=== PATIENT | female | born 1985 | race Two or more races ===

== ENCOUNTER 2024-03-07 11:56 | Outpatient (REF) | payer MEDICAID, SELFPAY ==
[2024-03-07 13:36] LABS: MANUAL DIFF FLAG NO
[2024-03-07 13:49] LABS: Basophils Percent Auto 0.6 % (0-2); Eosinophils Absolute Auto 0.1 X10*3/uL (0.0-0.4); Eosinophils Percent Auto 1.3 % (0-4); Hematocrit 35.2 % (37.0-47.0); Hemoglobin 10.4 g/dl (12.0-16.0); Imm Gran Abs Auto 0.01 X10*3/uL (0.00-0.03); Imm Gran Pct Auto 0.1 % (0.0-0.4); Lymphocytes Absolute Auto 2.1 X10*3/uL (1.2-4.9); Lymphocytes Percent Auto 29.8 % (20-40); Mean Corpuscular HGB Conc 29.5 g/dl (31.0-35.0); Mean Corpuscular Hemoglobin 19.4 pg (27.0-33.0); Mean Corpuscular Volume 65.7 fL (80.0-98.0); Monocytes Absolute Auto 0.6 X10*3/uL (0.1-1.2); Monocytes Percent Auto 9.2 % (2-11); Neutrophils Absolute Auto 4.1 x10*3/uL (2.0-8.3); Platelet Count 303 X10*3/uL (160-400); Red Blood Count 5.36 X10*6/uL (4.20-5.50); Red Cell Distribution Width 17.2 % (11.0-16.0)
[2024-03-07 14:38] LABS: Alanine Aminotransferase 12 U/L (0-31); Albumin Level 4.4 g/dL (3.5-5.0); Alkaline Phosphatase 86 U/L (39-117); Anion Gap 7 (12-20); Aspartate Amino Transferase 15 U/L (5-31); Bilirubin Total 0.4 mg/dL (0.0-1.0); Blood Urea Nitrogen 9 mg/dL (9-16); C Reactive Protein < 0.10 mg/dL (< or = 0.50); Calcium 9.3 mg/dL (8.4-10.2); Carbon Dioxide 29 mmol/L (22-29); Chloride 108 mmol/L (96-108); Estimated Glomerular Filt Rate > 60; Glucose Random 89 mg/dL (60-115); Potassium 3.9 mmol/L (3.3-5.1); Sodium 140 mmol/L (135-145); TSH reflex Free T4 1.58 uIU/mL (0.32-4.0); Total Protein 7.9 g/dL (6.5-8.0)
[2024-03-07 14:40] LABS: Erythrocyte Sedimentation Rate 10 MM/HR (0-20)
[2024-03-07 14:41] LABS: Rheumatoid Factor < 13.0 IU/mL (<15.0)
[2024-03-08 21:53] LABS: Lyme Abs Screen <0.90 index
[2024-03-18 10:58] LABS: Anti Nuclear Antibody Screen POSITIVE (NEGATIVE)
== END 2024-03-07 11:57 | disposition home or self-care (01) ==
LOC: HO.HHCL 11:56
PROVIDERS: Visit Provider Family Medicine
DX: M79.10 Myalgia, unspecified site (principal)
CPT/HCPCS: 36415; 80053; 84443; 85025; 85652; 86038; 86039; 86140; 86431; 86617; 86618

== ENCOUNTER 2025-04-02 13:35 | Emergency (ER) | payer MEDICAID, SELFPAY ==
--- NOTE | ~2025-04-02 | XR_ITS ---
EXAMINATION: XR FINGERS LEFT HISTORY: 4th digit crushed in door COMPARISON: Comparison is made with the prior examination of the left hand dated 12/16/2012. FINDINGS: Three views of the left ring finger are submitted. Osseous mineralization is normal. There is no fracture or dislocation. The joint spaces are preserved. The soft tissues are unremarkable. XR/XR finger LT min 2V IMPRESSION: Unremarkable examination of the left ring finger. Electronically signed by: Jacky Russell MD 04/02/2025 02:17 PM EDT
--- NOTE | 2025-04-02 13:38 | ED.SKABFB ---
HPI - Skin/Abscess/Foreign Bdy General Chief complaint: Extremity Injury, Upper Stated complaint: broken nail Time Seen by Provider: 04/02/25 16:39 Source: patient and supervisor hardboard Mode of arrival: ambulatory Limitations: no limitations and language barrier History of Present Illness ED Provider: HPI narrative: Patient works in the laundry room, was pushing the laundry bin at work when her left 4th digit became jammed and cracked all the way down to the nail bed she wears acrylic nails, unsure of her tetanus status. Patient is right-hand dominant Related Data Allergies Allergy/AdvReac Type Severity Reaction Status Date / Time No Known Allergies Allergy Verified 04/02/25 13:58 PMFSH Social History Social History Advance Directives: No Advance Directives Information Provided: Yes Do you have a plan to hurt others: No Plan Physical Exam Vital Signs: Vital Signs: Last Vital Signs Temp 97.2 F 04/02/25 13:55 Pulse 81 04/02/25 13:55 Resp 18 04/02/25 13:55 BP 151/76 H 04/02/25 13:55 Pulse Ox 100 04/02/25 13:55 O2 Del Method Room Air 04/02/25 13:55 BMI result Body Mass Index 31.1 Const: Other: Left hand radial ulnar pulses +2 full range of motion of the wrist, 4th digit involvement of the nail down to the nailbed, no sensory deficits proximally FDS FDP intact Course Course Course Narrative: This is a Rapid Medical Exam performed in triage by Hayde Fuentes PA-C. Full HPI, ROS and PE to be performed by primary ED provider. 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 Tetanus unknown PE: Acrylic nails present. Left 4th digit nail split. Lifted. Plan: X-ray, +/- nail removal Medications Administered Discontinued Medications Generic Name Dose Route Start Last Admin Trade Name Freq PRN Reason Stop Dose Admin Diphtheria/Tetanus/Acell Pertussis 0.5 ml 04/02/25 16:47 04/02/25 17:00 Diphth,Pertus(Acell),Tet Adult 0.5 Ml Syringe IM 04/02/25 16:48 0.5 ml .ONCE ONE Administration Lidocaine HCl 10 ml 04/02/25 16:44 04/02/25 17:02 Lidocaine Hcl 1 % 20 Ml Vial INFILTRATI 04/02/25 16:45 10 ml ONCE ONE Administration Medical Decision Making Medical Decision Making [facility] Narrative: Presenting with nail injury, we will obtain x-ray to make sure there is no underlying tuft fracture otherwise would be open injury and I would start her on antibiotics tetanus updated. 17:36 after digital block the acrylic part of the nail was removed with a needle charter coach driver, the nailbed remained in place Independent Interpretation I performed an independent interpretation of an: Plain X-Ray (No underlying fracture) Radiology Impression Discussion of test interpretation with radiology: I have reviewed the radiologist's reading. Radiologist Impression: XR/XR finger LT min 2V IMPRESSION: Unremarkable examination of the left ring finger. Procedures Nerve Block Nerve Block 1: Local Anesthetic: lidocaine 1% Amount of anesthesia used (mL): 5 Side: left Nerve Blocks: digital Procedure Successful: Yes Patient Tolerated Procedure: well and no complications Complications: none Discharge Plan Discharge Clinical Impression: Injury of finger Qualifiers: Encounter type: initial encounter Laterality: left Qualified Code(s): S69.92XA - Unspecified injury of left wrist, hand and finger(s), initial encounter Patient Disposition: Home, Self-Care Additional Instructions: Keep the dressing in place for the next 2 days thereafter remove and can use bacitracin ointment over the area, you can also get small finger condom to use if you are dealing with water but uterine specifically need to keep it covered at all times, it looks like the nail bed was not involved and so at some point you should have nail grow back, I am giving her a work note, make sure to take Tylenol 975 mg every 6 hours around the clock for the next 2 days to keep pain at [place], and ibuprofen 400 mg every 6 hours for additional pain control, it is expected that he will have some pain and throbbing of the finger, drainage of pus redness spreading around her hand come back to the ER. Tetanus was updated, good for the next 10 years. Stand Alone Forms: Work/School Release Print Language: Lao
[2025-04-02 13:55] VITALS: BP 151/76; PULSE 81; RESP 18; TEMP 36.2; O2SAT 100; BMI 31.1
--- OUTSIDE RECORDS SUMMARY | 2025-04-02 15:19 | XMS_ITS | Encounter Summary ---
Author Organization [employer] Address [address] [place] [address] Care Team Providers Care Riveting Machine Operator Tape Control Name Role Phone Unavailable Primary Care Provider Unavailabl e Reason for Visit * Reason Comments Med Refill Encounter Details Date Type Department Care Team (Late st Contact Info) Description 04/06/2024 Refill [facility] [address] [place] [address] Jocelyn Barrow MD [address] [place] [address] Seasonal allergic rhinitis, unspecified trigger Social History Tobacco Use Types Packs/Day Years Used Date Smoking Tobacco: Never Passive Smoke Exposure: Never Smokeless Tobacco: Never Comments Unknown Sex and Gender Information Value Date Recorded Sex Assigned at Female 09/12/2022 10:18 AM EDT Legal Sex Female 10:18 AM EDT Gender Identity Female 09/12/2022 10:18 AM EDT Sexual Orientation Choose not to disclose 2021 10:18 AM EDT documented as of this encounter Plan of Treatment Not on file documented as of this encounter Visit Diagnoses Diagnosis Seasonal allergic rhinitis, unspecified trigger documented in this encounter
--- OUTSIDE RECORDS SUMMARY | 2025-04-02 15:19 | XMS_ITS | Clinical Summary ---
Author Organization [facility] Address [address] [place] [address] Care Team Providers Care Loan Servicing Specialist Name Role Phone Unavailable Primary Care Provider Unavailabl e Allergies No known active allergies Medications levocetirizine (Xyzal) 5 MG tabletIndication s:Seasonal allergic rhinitis, unspecified trigger Take 1 tablet (5 mg) by mouth in the evening. 90 tablet 3 3 Active fluticasone (Flonase) 50 MCG/ACT nasal sprayIndications :Seasonal allergic rhinitis, unspecified trigger SPRAY 2 SPRAYS INTO EACH NOSTRIL IN THE MORNING SHAKE GENTLY/PRIME BEFORE 1ST USE&CLEAN TIP/REPLACE CAP 48 mL 4 Active Iron, Ferrous Sulfate, 325 (65 Fe) MG tabletIndication s:Iron deficiency anemia, unspecified iron deficiency anemia type Take 1 tablet by mouth Once per day. 30 tablet 11 4 03/08/20 25 Active Problems No known active problems Encounters Date Type Department Care Team Description 04/02/2025 Orders Only [facility] External Provider, [facility] 01/24/2025 Population Health Risk Score [facility] ([facility]) Department [address] [facility] [address] [place] [id number] Provider, Population Health Generic from Last 3 Months Immunizations Immunization Administration Dates Next Due Influenza injectable quadrivalent preservative f ree 08/15/2019 Td (adult), 5 Lf tetanus tox oid, preservative free, adsorbed 12/16/2012 Social History Tobacco Use Types Packs/Day Years Used Date Smoking Tobacco: Never Passive Smoke Exposure: Never Smokeless Tobacco: Never Tobacco Cessation:Counseling Given: Not Answered Comments Unknown Sex and Gender Information Value Date Recorded Sex Assigned at Female 09/12/2022 10:18 AM EDT Legal Sex Female 10:18 AM EDT Gender Identity Female 09/12/2022 10:18 AM EDT Sexual Orientation Choose not to disclose 2021 10:18 AM EDT Last Filed Vital Signs Vital Sign Reading Time Taken Comments Blood Pressure 142/82 03/07/2024 11:24 AM EDT Pulse 90 03/07/2024 11:24 AM EDT Temperature 36.8 ??C (98.2 ??F) 03/07/2024 11:24 AM E DT Respiratory Rate 18 03/07/2024 11:24 AM EDT Oxygen Saturation 100% 03/07/2024 11:24 AM EDT Inhaled Oxygen Concentration - - Weight 78.9 kg (174 lb) 03/07/2024 11:24 AM EDT Height 163 cm (5' 4.17 ) 05/10/2022 12:06 AM EDT Body Mass Index 29.71 05/10/2022 12:06 AM EDT Plan of Treatment Health Maintenance Due Date Last Done Comments Depression Screening 1985 SDOH Screening 1985 Disability Screening 1985 Alcohol/Substance Use Screening 1997 Family Planning (PISQ) 2000 Hepatitis B Vaccines (1 of 3 - 19+ 3-dose series) 2004 Pap Smear 2006 DTaP/Tdap/Td Vaccines (1 - Tdap) 12/17/2012 12/16/2012 Cervical Cancer Screening 2015 HPV/Cotest 2015 COVID-19 Vaccine ( season) 2024 09/28/2023, 09/08/2021, 03/25/2021, Additional history exists Influenza Vaccine (#1) 2024 10/26/2023, 2018 Tobacco Screening 03/07/2025 03/07/2024 Zoster Vaccines (1 of 2) 2035 RSV Patients and Patients Aged 60 years or older (1 - 1-dose 75+ series) 2060 HIV Screening Completed 05/10/2022 Hepatitis C Screening Completed 05/10/2022 HIB Vaccines Aged Out No longer eligi ble based on patient's age to complete this topic HPV Vaccines Aged Out No longer eligi ble based on patient's age to complete this topic Hepatitis A Vaccines Aged Out No long er eligible based on patient's age to complete this topic IPV Vaccines Aged Out No longer eligi ble based on patient's age to complete this topic Meningococcal B Vaccine Aged Out No l onger eligible based on patient's age to complete this topic Meningococcal Vaccine Aged Out No curtis irina eligible based on patient's age to complete this topic Pneumococcal Vaccine: Pediatrics (0 to 5 Years) and At-Risk Patients (6 to 49) Years) Aged Out No longer eligible based on patient's age to complete this topic RSV under 20 months Aged Out No longe r eligible based on patient's age to complete this topic Rotavirus Vaccines Aged Out No longer eligible based on patient's age to complete this topic Procedures Procedure Name Priority Date/Time Associated Diagnosis Comments XR FINGERS 2+ VIEWS LEFT Routine 04/02/2025 1:54 PM EDT ZZZ HISTORICAL HEPATITIS C AB W/REFL TO HCV RNA, QN, PCR Routine 05/10/2022 1:59 PM EDT HIV 1/2 ANTIGEN/ANTIBODY, FOURTH GENERATION W/RFL Routine 05/10/2022 1:59 PM EDT from Last 3 Months or Most Recently Relevant to Health Maintenance Results * XR Fingers 2+ Views Left (04/02/2025 1:54 PM EDT) Anatomical Region Laterality Modality Upper Extremities, Fingers Left Radio graphic Imaging 04/02/2025 1:54 PM EDT Narrative 04/02/2025 2:20 PM EDT ? [facility] ?[address] ?[place] [address] ?XRay Report ? Signed ? Patient: Rudolphannamarie Burns,Jolynn ?MR#: [id number] ?? [id number] ? : 1985 ?Acct:[id number] ? Age/Sex: 39 / F ?ADM Date: 05/21/25 ? Loc: HO.ED ? Attending Dr: ? Ordering Physician: Hayde Fuentes ?? Date of Service: 04/02/25 ?? Procedure(s): XR finger LT min 2V ?? Accession Number(s): [id number] ? cc: Jocelyn Barrow MD; Hayde Fuentes ? EXAMINATION: ??XR FINGERS LEFT ? HISTORY: 4th digit crushed in door ? COMPARISON: Comparison is made with the prior examination of the left ?? hand dated 12/16/2012. ? FINDINGS: ? Three views of the left ring finger are submitted. ??Osseous ?? mineralization is normal. ??There is no fracture or dislocation. ??The ?? joint spaces are preserved. ??The soft tissues are unremarkable. ? XR/XR finger LT min 2V ?? IMPRESSION: ? Unremarkable examination of the left ring finger. ? Electronically signed by: ??Jacky Russell MD ??04/02/2025 02:17 PM EDT ? Dictated By: ?Jacky Russell MD ? Signed By: ?<Electronically signed by Jacky Russell MD in OV> ?04/02/25 1417 ? DD/ 1354 ? TD/TT: 04/02/25 1409 ? Newborn Photographer: ? Procedure Note Anastasia, Ramone - 04/02/[address] [address] XRay Report Signed Patient: Jolynn PhippsMR#: [id number] : 1985Acct:[id number] Age/Sex: 39 / FADM Date: 04/02/25 Loc: HO.ED Attending Dr: Ordering Physician: Hayde Fuentes Date of Service: 04/02/25 Procedure(s): XR finger LT min 2V Accession Number(s): [id number] cc: Jocelyn Barrow MD; Hayde Fuentes EXAMINATION: XR FINGERS LEFT HISTORY: 4th digit crushed in door COMPARISON: Comparison is made with the prior examination of the left hand dated 12/16/2012. FINDINGS: Three views of the left ring finger are submitted. Osseous mineralization is normal. There is no fracture or dislocation. The joint spaces are preserved. The soft tissues are unremarkable. XR/XR finger LT min 2V IMPRESSION: Unremarkable examination of the left ring finger. Electronically signed by: Jacky Russell MD 04/02/2025 02:17 PM EDT RP Dictated By: Jacky Russell MD Signed By: <Electronically signed by Jacky Russell MD in OV> 04/02/25 1417 DD/ 1354 TD/TT: 04/02/25 1409 Newborn Photographer: [facility] External Provider IMG XR PROCEDURES Final Result * HEPATITIS C AB W/REFL TO HCV RNA, QN, PCR (05/10/2022 1:59 PM EDT) HEPATITIS C ANTIBODY NON-REACT MILAD NON-REACT MILAD [facility] INDEX 0.04 <1.00 [facility] Comment: ?? HCV antibody was non-reactive. There is no laboratory ?? evidence of HCV infection. ?? In most cases, no further action is required. However, if recent HCV exposure is suspected, a test for HCV RNA (test code 90888) is suggested. ?? For additional information please refer to http://education.Tribe/faq/VBS11r2 (This link is being provided for informational/ educational purposes only.) ?? 05/10/2022 1:59 PM EDT Christopher Brock MD HISTORICAL/NON ORDERABLE LABS Fi nal Result [facility] [address] * HIV 1/2 ANTIGEN/ANTIBODY,FOURTH GENERATION W/RFL (05/10/2022 1:59 PM EDT) HIV-1/2 ANTIGEN AND ANTIBODIES, 4TH GENERATION W/ REFLEX NON-REACT MILAD NON-REACT MILAD [facility] Comment: HIV-1 antigen and HIV-1/HIV-2 antibodies were not detected. There is no laboratory evidence of HIV infection. ?? PLEASE NOTE: This information has been disclosed to you from records whose confidentiality may be protected by state law. ??If your state requires such protection, then the state law prohibits you from making any further disclosure of the information without the specific written consent of the person to whom it pertains, or as otherwise permitted by law. A general authorization for the release of medical or other information is NOT sufficient for this purpose. ? For additional information please refer to http://education.Tribe/faq/LAW910 (This link is being provided for informational/ educational purposes only.) ? The performance of this assay has not been clinically validated in patients less than 2 years old. ?? 05/10/2022 1:59 PM EDT us Christopher Brock MD LAB BLOOD ORDERABLES Final Resul t [facility] [address] from Last 3 Months or Most Recently Relevant to Health Maintenance Insurance Relevant e-solution C3
--- OUTSIDE RECORDS SUMMARY | 2025-04-02 15:20 | XMS_ITS | Encounter Summary ---
Author Organization [employer] Address [address] [place] [address] Care Team Providers Care Brush Head Maker Name Role Phone Unavailable Primary Care Provider Unavailabl e Reason for Visit * Reason Comments Med Refill Encounter Details Date Type Department Care Team (Late st Contact Info) Description 12/14/2024 Refill [facility] [address] [place] [address] Jocelyn Barrow MD [address] [place] [address] Seasonal allergic rhinitis, unspecified trigger Social History [...]
--- OUTSIDE RECORDS SUMMARY | 2025-04-02 15:20 | XMS_ITS | Clinical Summary ---
Author Organization [facility] Address [address] [place] [address] Phone Care Team Providers Care Course Developer Name Role Phone Jessica Carroll MD Primary Care Provider [phone] Allergies No known active allergies Medications ferrous sulfate 325 mg (65 mg elemental iron) tablet Take 1 tablet (325 mg total) by mouth 1 (one) time each day. 30 tablet 02/01/2025 Active Active Problems No known active problems Encounters Date Type Department Care Team Description 02/01/2025 7:41 PM EDT - 02/02/2025 12:25 AM EDT Emergency [facility] Emergency [address] [place] [address] Diarrhea, unspecified type (Primary Dx); Iron deficiency anemia, unspecified iron deficiency anemia type Discharge Disposition: Home or Self Care from Last 3 Months Surgical History Surgery Date Site/Laterality Comments SECTION PROCEDURE: [place] DELIVERY ONLY Medical History Medical History Date Comments Anemia DX:Anemia Anemia Family History Medical History Relation Name Comments Diabetes Father Relation Name Status Comments Father Social History Tobacco Use Types Packs/Day Years Used Date Smoking Tobacco: Never Smokeless Tobacco: Never Alcohol Use Standard Drinks/Week Comments Yes 0.8 (1 standard drink = 0.6 oz p ure alcohol) Comments Unknown Sex and Gender Information Value Date Recorded Sex Assigned at Female 02/01/2025 8:36 PM EDT Legal Sex Female 9:53 AM EST Gender Identity Female 02/01/2025 8:36 PM EDT Sexual Orientation Straight 02/01/2025 8: 36 PM EDT Obstetrics History Last Filed Vital Signs Vital Sign Reading Time Taken Comments Blood Pressure 108/71 02/01/2025 10:29 PM EDT Pulse 76 02/01/2025 10:29 PM EDT Temperature 37 ??C (98.6 ??F) 02/01/2025 10:29 PM EDT Respiratory Rate 18 02/01/2025 10:29 PM EDT Oxygen Saturation 98% 02/01/2025 10:29 PM EDT Inhaled Oxygen Concentration - - Weight 72.6 kg (160 lb) 02/01/2025 6:14 PM EDT Height 160 cm (5' 3 ) 02/01/2025 6:14 PM EDT Body Mass Index 28.34 02/01/2025 6:14 PM EDT Plan of Treatment Health Maintenance Due Date Last Done Comments Hepatitis B Vaccines (1 of 3 - 19+ 3-dose series) 2004 Cervical Cancer Screening: Pap Smear 2006 DTaP,Tdap,and Td Vaccines (3 - Td or Tdap) 12/16/2022 12/16/2012, 07/17/2012 COVID-19 Vaccine ( season) 2024 09/28/2023, 09/08/2021, 03/25/2021, Additional history exists Depression Screening 02/02/2025 Hepatitis C Screening 02/02/2025 Social Influencers of Health Screening 02/02/2025 Influenza Vaccine (Season Ended) 2025 10/26/2023, 08/15/2019 HIV Screening Completed 05/10/2022 HIB Vaccines Aged Out [...] on patient's age to complete this topic MMR Vaccines Aged Out No longer eligi ble based on patient's age to complete this topic Meningococcal ACWY Vaccine Aged Out N o longer eligible based on patient's age to complete this topic Meningococcal B Vaccine Aged Out No l onger eligible based on patient's age to complete this topic Pneumococcal Vaccine: Pediatrics (0 to 5 Years) and At-Risk Patients (6 to 64 Years) Aged Out No longer eligible based on patient's age to complete this topic RSV Immunization Patients Under 20 months Aged Out No longer eligible based on patient's age to complete this topic Varicella Vaccines Aged Out No longer eligible based on patient's age to complete this topic Procedures Procedure Name Priority Date/Time Associated Diagnosis Comments CT ABDOMEN PELVIS W CONTRAST STAT 02/01/2025 10:19 PM EDT [id number], RSV, FLU A AND B QUALITATIVE RT-PCR, INTERNAL LAB STAT 02/01/2025 8:59 PM EDT NICK URINE CULTURE TUBE STAT 02/01/2025 7:56 PM EDT URINALYSIS WITH REFLEX MICROSCOPIC AND CULTURE STAT 02/01/2025 7:56 PM EDT URINALYSIS WITH REFLEX MICROSCOPIC AND CULTURE STAT 02/01/2025 7:56 PM EDT CULTURE URINE STAT 02/01/2025 7:56 PM EDT CBC WITH AUTO DIFFERENTIAL STAT 02/01/2025 7:14 PM EDT COMPREHENSIVE METABOLIC PANEL STAT 02/01/2025 7:14 PM EDT CBC AND DIFFERENTIAL STAT 02/01/2025 7:14 PM EDT from Last 3 Months Results * CT Abdomen Pelvis w Contrast (02/01/2025 10:19 PM EDT) Anatomical Region Laterality Modality Body Computed Tomogra phy 02/01/2025 11:0 7 PM EDT Impressions 02/01/2025 11:07 PM EDT 1. No evidence of a bowel obstruction or free air. No pericolonic inflammation. No evidence of appendicitis. 2. Left ovarian follicle measures 1.6 cm. Small amount of pelvic free fluid is noted which might be physiologic. 3. Additional findings are detailed above. This document has been electronically signed by: Faraz Bryant M.D. on 02/01/2025 23:07:52 Narrative 02/01/2025 11:07 PM EDT INDICATION: LLQ pain, diarrhea x [address] ABDOMEN AND PELVIS WITH CONTRAST COMPARISON: None. FINDINGS: No evidence of a small-bowel obstruction. No free air. No pericolonic inflammation. Appendix is visualized, and there is no evidence of acute appendicitis. Subcentimeter nonenlarged lymph nodes are noted in the mesentery. Tubal ligation wires are noted. Small amount of pelvic free fluid is noted which might be physiologic. A left ovarian follicle measures 1.6 cm on axial image 148. The lung bases are unremarkable. A subcentimeter calcified granuloma is noted within the right hepatic lobe. Liver is mildly enlarged and measures 18.6 cm on coronal image 45. No visible gallstone. No pericholecystic inflammation. Common bile duct is not dilated. Stomach is significantly underdistended which precludes accurate assessment. No CT evidence of acute pancreatitis. Spleen and adrenal glands are unremarkable. A subcentimeter low-attenuation lesion in the left kidney is too small to characterize. Kidneys are otherwise unremarkable. No hydronephrosis or obstructing stone. No evidence of an abdominal aortic aneurysm or dissection. Small fat containing umbilical hernia is present. No evidence of a bowel containing hernia. Bone windows demonstrate no acute abnormality. Procedure Note Faraz Bryant MD - 02/01/2025 INDICATION: LLQ pain, diarrhea x [address] ABDOMEN AND PELVIS WITH CONTRAST COMPARISON: None. FINDINGS: No evidence of a small-bowel obstruction. No free air. No pericolonic inflammation. Appendix is visualized, and there is noevidence of acute appendicitis. Subcentimeter nonenlarged lymph nodes are notedin the mesentery. Tubal ligation wires are noted. Small amount of pelvicfree fluid is noted which might be physiologic. A left ovarian follicle measures 1.6 cm on axial image 148. The lung bases are unremarkable. A subcentimeter calcified granuloma is noted within the right hepatic lobe. Liver is mildly enlarged andmeasures 18.6 cm on coronal image 45. No visible gallstone. No pericholecystic inflammation. Common bile duct is not dilated. Stomach is significantly underdistended which precludes accurate assessment. No CT evidence of acute pancreatitis. Spleen and adrenal glands are unremarkable. A subcentimeter low-attenuation lesion in the left kidney is too small to characterize. Kidneys are otherwise unremarkable. No hydronephrosis or obstructing stone. No evidence of an abdominal aortic aneurysm or dissection. Small fat containing umbilical hernia is present. Noevidence of a bowel containing hernia. Bone windows demonstrate no acute abnormality. IMPRESSION: 1. No evidence of a bowel obstruction or free air. No pericolonic inflammation. No evidence of appendicitis. 2. Left ovarian follicle measures 1.6 cm. Small amount of pelvic free fluid is noted which might be physiologic. 3. Additional findings are detailed above. This document has been electronically signed by: Faraz Bryant M.D. on 02/01/2025 23:07:[address] PROCEDURES Final Result * [id number], RSV, Influenza A and B qualitative RT-PCR (02/01/2025 8:59 PM EDT) Influenza A PCR Not Detected Not Detected LAB MICROBIOLOGY METHOD 02/01/2025 9:46 PM EDT [facility] Influenza B PCR Not Detected Not Detected LAB MICROBIOLOGY METHOD 02/01/2025 9:46 PM EDT [facility] RSV PCR Not Detected Not Detected LAB MICROBIOLOGY METHOD 02/01/2025 9:46 PM EDT [facility] SARS COV-2 Not Detected Not Detected LAB MICROBIOLOGY METHOD 02/01/2025 9:46 PM EDT [facility] Swab Both anterior nares / Unknown Non-blood Collection / Unknown 02/01/2025 8:59 PM EDT 02/01/2025 9:03 PM EDT Narrative [facility] - 02/01/2025 9:46 PM EDT Disclaimer: ??Testing was performed using the [employer] GeneXpert Xpress SARS-CoV-2 _Flu_RSV PLUS PCR assay. ??The manner in which this information is used to guide patient care is the responsibility of the healthcare provider. ??Results should be correlated with the clinical history, epidemiological data, and other data available to the clinician evaluating the patient. ??Negative results do not preclude infection. ??This test has been authorized by the FDA under an Emergency Use Authorization (EUA). ??This test is only authorized for the duration of time the declaration that circumstances exist justifying the authorization of the emergency use of in vitro diagnostic tests for detection of SARS-CoV-2 virus and/or diagnosis of COVID-19 infection under section 564 (b) (1) of the Act, 21 U.S.C 360bbb-3 (b) (1), unless the authorization is terminated or revoked sooner. ?? Reference Range: Not Detected Fact sheet for Healthcare providers can be found at https://www.fda.gov/media/663095/download. ?? Fact sheet for Healthcare patients can be found at https://www.fda.gov/media/942594/download. us Destinee CON[facility] LAB MICROBIOLOGY - GENERAL ORD ERABLES Final Result [facility] [address] [place] [address], * (ABNORMAL) Urinalysis with reflex microscopic and culture (02/01/2025 7:56 PM EDT) Specific Meally Urine 1.015 1.003 - 1.030 LAB URINALYSIS - AUTOMATED METHOD 02/01/2025 8:29 PM EDT [facility] pH, Urine 6.0 5.0 - 8.0 pH LAB URINALYSIS - AUTOMATED METHOD 02/01/2025 8:29 PM EDT [facility] Leukocytes, Urine Small(A) Negative LAB URINALYSIS - AUTOMATED METHOD 02/01/2025 8:29 PM EDT [facility] Nitrite, Urine Negative Negative LAB URINALYSIS - AUTOMATED METHOD 02/01/2025 8:29 PM EDT [facility] Protein, Urine Negative <=Trace mg/dL LAB URINALYSIS - AUTOMATED METHOD 02/01/2025 [facility] Glucose, Urine Negative Negative mg/dL LAB URINALYSIS - AUTOMATED METHOD 02/01/2025 8:29 PM EDT [facility] Ketones, Urine Negative Negative mg/dL LAB URINALYSIS - AUTOMATED METHOD 02/01/2025 8:29 PM EDT [facility] Urobilinogen, Urine 1.0 0.2 - 1.0 mg/dL LAB URINALYSIS - AUTOMATED METHOD 02/01/2025 8:29 PM EDT [facility] Bilirubin, Urine Negative Negative LAB URINALYSIS - AUTOMATED METHOD 02/01/2025 8:29 PM EDT [facility] Blood, Urine Negative Negative LAB URINALYSIS - AUTOMATED METHOD 02/01/2025 8:29 PM EDT [facility] RBC, Urine 1 0 - 4 /HPF 02/01/2025 8:29 PM EDT [facility] WBC, Urine 3 0 - 4 /HPF 02/01/2025 8:29 PM EDT [facility] Squamous Epithelial, Urine >100(H) 0 - 60 /LPF 02/01/2025 8:29 PM EDT [facility] Bacteria, Urine Few(A) Negative /HPF 02/01/2025 8:29 PM EDT [facility] Hyaline Casts, Urine 0 0 - 3 /LPF 02/01/2025 8:29 PM T [facility] Urine Urine specimen obtained by clean catch procedure / Unknown Non-blood Collection / Unknown 02/01/2025 7:56 PM EDT 02/01/2025 8:06 PM EDT us Stanislaw Mitchell MD LAB URINE ORDERABLES Final R esult [facility] [address] [place] [address], * Nick urine culture tube (02/01/2025 7:56 PM EDT) Extra Tube Hold for add-ons. 02/01/2025 10:03 PM EDT [facility] Comment:Auto resulted. Urine Urine specimen obtained by clean catch procedure / Unknown Non-blood Collection / Unknown 02/01/2025 7:56 PM EDT 02/01/2025 8:06 PM EDT us Stanislaw Mitchell MD LAB URINE ORDERABLES Final R esult Performing Organization Address City/[facility]/ZIP Co de Phone Number [facility] [address] [place] [address], [place] [phone] * Culture urine (02/01/2025 7:56 PM EDT) [facility] Culture, Urine No growth 02/02/2025 1:07 PM EDT [facility] Urine Urine specimen obtained by clean catch procedure / Unknown Non-blood Collection / Unknown 02/01/2025 7:56 PM EDT 02/01/2025 8:29 PM EDT us Stanislaw Mitchell MD LAB MICROBIOLOGY - GENERAL O RDERABLES Final Result Performing Organization Address [facility]/ZIP Co de Phone Number [facility] [address] [place] [address], [place] [phone] * (ABNORMAL) CBC auto differential (02/01/2025 7:14 PM EDT) [facility] WBC 10.8 4.8 - 10.8 K/[facility] LAB HEMETOLOGY METHOD 02/01/2025 8:02 PM EDT [facility] RBC 5.20(H) 3.80 - 4.80 M/[facility] LAB HEMETOLOGY METHOD 02/01/2025 8:02 PM EDT [facility] Hemoglobin 8.7(L) 11.5 - 16.0 g/dL LAB HEMETOLOGY METHOD 02/01/2025 8:02 PM [facility] Hematocrit 30.4(L) 35.0 - 47.0 % LAB HEMETOLOGY METHOD 02/01/2025 8:02 PM [facility] MCV 58.0(L) 79.0 - 98.0 FL LAB HEMETOLOGY METHOD 02/01/2025 8:02 PM [facility] MCH 16.6(L) 27.0 - 32.0 pcg LAB HEMETOLOGY METHOD 02/01/2025 8:02 PM [facility] MCHC 28.6(L) 32.0 - 37.0 g/dL LAB HEMETOLOGY METHOD 02/01/2025 8:02 PM [facility] RDW 22.4(H) 11.0 - 15.0 % LAB HEMETOLOGY METHOD 02/01/2025 8:02 PM [facility] Platelets 248 130 - 400 K/mcL LAB HEMETOLOGY METHOD 02/01/2025 8:02 PM [facility] MPV LAB HEMETOLOGY METHOD 02/01/2025 8:02 PM [facility] Comment:Not Measured NRBC 0.0 <1.0 % LAB HEMETOLOGY METHOD 02/01/2025 8:02 PM [facility] NRBC Absolute 0.00 <0.10 K/mcL LAB HEMETOLOGY METHOD 02/01/2025 8:02 PM [facility] Neutrophils Relative 59.2 % LAB HEMETOLOGY METHOD 02/01/2025 8:02 PM [facility] Lymphocytes Relative 30.3 % LAB HEMETOLOGY METHOD 02/01/2025 8:02 PM [facility] Monocytes Relative 8.1 % LAB HEMETOLOGY METHOD 02/01/2025 8:02 PM [facility] Eosinophils Relative 1.4 % LAB HEMETOLOGY METHOD 02/01/2025 8:02 PM EDT [facility] Basophils Relative 0.6 % LAB HEMETOLOGY METHOD 02/01/2025 8:02 PM EDT [facility] Immature Granulocytes Relative 0.4 % LAB HEMETOLOGY METHOD 02/01/2025 8:02 PM EDT [facility] Neutrophils Absolute 6.37 1.50 - 7.00 K/mcL LAB HEMETOLOGY METHOD 02/01/2025 8:02 PM EDT [facility] Lymphocytes Absolute 3.26 1.00 - 5.00 K/mcL LAB HEMETOLOGY METHOD 02/01/2025 8:02 PM EDT [facility] Monocytes Absolute 0.87 0.20 - 1.00 K/mcL LAB HEMETOLOGY METHOD 02/01/2025 8:02 PM EDT [facility] Eosinophils Absolute 0.15 0.00 - 0.50 K/mcL LAB HEMETOLOGY METHOD 02/01/2025 8:02 PM EDT [facility] Basophils Absolute 0.06 0.00 - 0.20 K/mcL LAB HEMETOLOGY METHOD 02/01/2025 8:02 PM EDT [facility] Immature Granulocytes Absolute 0.04(H) 0.00 - 0.03 K/mcL LAB HEMETOLOGY METHOD 02/01/2025 8:02 PM EDT [facility] Blood Venous blood specimen / Unknown Venipuncture / Unknown 02/01/2025 7:14 PM EDT 02/01/2025 7:49 PM EDT us Stanislaw Mitchell MD LAB BLOOD ORDERABLES Final R esult [facility] [address] [place] [address], * Comprehensive metabolic panel (02/01/2025 7:14 PM EDT) Sodium 142 133 - 145 mmol/L LAB CHEMISTRY METHOD 02/01/2025 8:20 PM [facility] Potassium 3.6 3.5 - 5.5 mmol/L LAB CHEMISTRY METHOD 02/01/2025 8:20 PM [facility] Chloride 110 96 - 110 mmol/L LAB CHEMISTRY METHOD 02/01/2025 8:20 PM [facility] CO2 24 21 - 32 mmol/L LAB CHEMISTRY METHOD 02/01/2025 8:20 PM [facility] Anion Gap 8 3 - 11 LAB CHEMISTRY METHOD 02/01/2025 8:20 PM [facility] Glucose 79 70 - 100 mg/dL LAB CHEMISTRY METHOD 02/01/2025 8:20 PM [facility] BUN 9 5 - 25 mg/dL LAB CHEMISTRY METHOD 02/01/2025 8:20 PM [facility] Creatinine 0.57 0.50 - 1.10 mg/dL LAB CHEMISTRY METHOD 02/01/2025 8:20 PM [facility] eGFR 119 >=60 mL/min/1. 73m2 LAB CHEMISTRY METHOD 02/01/2025 8:20 PM [facility] Comment:Calculation based on the??Chronic Kidney Disease Epidemiology Collaboration (CKD-EPI) equation refit??without adjustment for race. BUN/Creatinine Ratio 15.8 LAB CHEMISTRY METHOD 02/01/2025 8:20 PM [facility] Calcium 9.0 8.5 - 10.5 mg/dL LAB CHEMISTRY METHOD 02/01/2025 8:20 PM [facility] AST (SGOT) 23 10 - 42 unit/L LAB CHEMISTRY METHOD 02/01/2025 8:20 PM [facility] ALT (SGPT) 39 10 - 60 unit/L LAB CHEMISTRY METHOD 02/01/2025 8:20 PM [facility] Alkaline Phosphatase 104 42 - 121 unit/L LAB CHEMISTRY METHOD 02/01/2025 8:20 PM EDT [facility] Total Protein 7.4 6.0 - 8.0 g/dL LAB CHEMISTRY METHOD 02/01/2025 8:20 PM EDT [facility] Albumin 3.9 3.2 - 5.0 g/dL LAB CHEMISTRY METHOD 02/01/2025 8:20 PM EDT [facility] Total Bilirubin 0.4 0.0 - 1.4 mg/dL LAB CHEMISTRY METHOD 02/01/2025 8:20 PM EDT [facility] Blood Venous blood specimen / Unknown Venipuncture / Unknown 02/01/2025 7:14 PM EDT 02/01/2025 7:50 PM EDT us Stanislaw Mitchell MD LAB BLOOD ORDERABLES Final R esult [facility] [address] [place] [address], from Last 3 Months Insurance * Guarantor: Jolynn Rudolph Account Type Relation to Patient Date of Phone Billing Address Personal/Family Self 1985 [address] [address] MEDICAID - [place] Care Teams Course Developer Relationship Specialty Start Date End Date Jessica Carroll MD [address] [place] [phone] PCP - General 06/13/14
--- OUTSIDE RECORDS SUMMARY | 2025-04-02 15:20 | XMS_ITS | Encounter Summary ---
Author Organization [employer] Address [address] [place] [address] Care Team Providers Care Geotechnician Name Role Phone Unavailable Primary Care Provider Unavailabl e Encounter Details Date Type Department Care Team (Late st Contact Info) Description 04/02/2025 Orders Only [facility] External Provider, [facility] Social History Tobacco Use Types Packs/Day Years [...] on file documented as of this encounter Procedures Procedure Name Priority Date/Time Associated Diagnosis Comments XR FINGERS 2+ VIEWS LEFT Routine 04/02/2025 1:54 PM EDT documented in this encounter Results * XR Fingers 2+ Views Left (04/02/2025 1:54 PM EDT) Anatomical Region Laterality Modality Upper Extremities, Fingers Left Radio graphic Imaging 04/02/2025 1:54 PM EDT Narrative 04/02/2025 2:20 PM EDT ? [facility] ?[address] ?[place] [address] ?XRay Report ? Signed ? Patient: Rudolph Grant,Jolynn ?MR#: [id number] ?? [id number] ? : 1985 ?Acct:[id number] ? Age/Sex: 39 / F ?ADM Date: 05/21/25 ? Loc: HO.ED ? Attending Dr: ? Ordering Physician: Hayde Fuentes ?? Date of Service: 04/02/25 ?? Procedure(s): XR finger LT min 2V ?? Accession Number(s): [id number] ? cc: Jocelyn Barrow MD; Hayde Fuentes [...] ??Jacky Russell MD ??04/02/2025 02:17 PM EDT ?? RP ? Dictated By: ?Jacky Russell MD ? Signed By: ?<Electronically signed by Jacky Russell MD in OV> ?04/02/25 1417 ? DD/ 1354 ? TD/TT: 04/02/25 1409 ? Dry Wall Sprayer: ? Procedure Note Anastasia, Image - 04/02/2025 [place] [address] XRay Report Signed Patient: Jolynn PhippsMR#: [id number] : 1985Acct:[id number] Age/Sex: 39 / FADM Date: 04/02/25 Loc: HO.ED Attending Dr: Ordering Physician: Hayde Fuentes Date of Service: 04/02/25 Procedure(s): XR finger LT min 2V Accession Number(s): [id number] cc: Jocelyn Barrow MD; Hayde Fuentes EXAMINATION: [...] 04/02/25 1417 DD/ 1354 TD/TT: 04/02/25 1409 Dry Wall Sprayer: [facility] External Provider IMG XR PROCEDURES Final Result documented in this encounter Visit Diagnoses Not on filedocumented in this encounter
[2025-04-02] MEDS: Diphth,Pertus(ACell),Tet Adult 0.5 ML SYRINGE IM (17:00)
[2025-04-02] MEDS: Lidocaine HCl 1 % 20 ML VIAL 10 ML INFILTRATI (17:02)
[2025-04-02] MEDS: Acetaminophen 325 MG TABLET 975 MG PO (18:00)
[2025-04-02] MEDS: Ibuprofen 400 MG TABLET PO (18:00)
[2025-04-02 18:04] VITALS: BP 151/76; PULSE 81; RESP 18; TEMP 36.2; O2SAT 100
== END 2025-04-02 18:05 | disposition home or self-care (01) ==
PROVIDERS: Emergency Provider Emergency Medicine; PCP Internal Medicine
DX: S67.195A Crushing injury of left ring finger, initial encounter (principal); S60.415A Abrasion of left ring finger, initial encounter; Y29.XXXA Contact with blunt object, undetermined intent, initial encounter; X58.XXXA Exposure to other specified factors, initial encounter; Y93.9 Activity, unspecified; Y92.9 Unspecified place or not applicable; Y99.8 Other external cause status; Z23 Encounter for immunization
CPT/HCPCS: 11750; 64450; 73140; 90471; 90715; 99283; 99284; J2003

== ENCOUNTER → 2025-04-02 13:54 | Outpatient (BNV) | payer MEDICAID, SELFPAY | PROVIDERS: PCP Internal Medicine; Visit Provider Radiology Diagnostic Radiology | DX: M79.645 Pain in left finger(s) (principal) | CPT/HCPCS: 73140 ==